=== PATIENT | female | born 1995 | race African-American/Black ===

== ENCOUNTER 2017-01-15 21:33 | Emergency (ER) | payer MEDICAID, OTHER ==
[~2017-01-15] VITALS: Ht 162.6 cm; Wt 74.8 kg
[~2017-01-15 21:33] MED LIST: BUPR75TA4 PO; CIPR-173 PO
[2017-01-15 22:02] VITALS: BP 116/90
[2017-01-15] MEDS ORDERED: HYDROmorphone HCL 2 MG/ML VL IV ONE (22:30)
[2017-01-15] MEDS ORDERED: ONDANSETRON HCL 4 MG/2 ML VIAL IV ONE (22:30)
[2017-01-15] MEDS ORDERED: methylPREDNISolone SOD SUCC 125 MG/2 ML VL ONE (23:10)
== END 2017-01-16 00:26 | disposition home or self-care (01) ==
LOC: EDBD 21:33 → ER 21:38
DX: S83.094A Other dislocation of right patella, initial encounter (principal); X50.9XXA Other and unspecified overexertion or strenuous movements or postures, initial encounter; Y93.89 Activity, other specified; Y99.0 Civilian activity done for income or pay; Y92.69 Other specified industrial and construction area as the place of occurrence of the external cause
CPT/HCPCS: 27560; 36415; 73562; 84702; 96374; 96375; 99285; J1170; J2405; J2930

== ENCOUNTER 2020-08-30 10:21 | Emergency (ER) | payer MEDICAID, OTHER ==
[~2020-08-30] VITALS: Ht 162.6 cm; Wt 85.7 kg
[2020-08-30 11:04] VITALS: BP 114/73
== END 2020-08-30 11:22 | disposition home or self-care (01) ==
LOC: ER 10:21
DX: S93.401A Sprain of unspecified ligament of right ankle, initial encounter (principal); W10.8XXA Fall (on) (from) other stairs and steps, initial encounter; Y93.89 Activity, other specified; Y92.89 Other specified places as the place of occurrence of the external cause; Y99.8 Other external cause status
CPT/HCPCS: 73610

== ENCOUNTER 2021-02-10 21:29 | Emergency (ER) | payer MEDICAID ==
[~2021-02-10] VITALS: Ht 170.2 cm; Wt 72.6 kg
[2021-02-10 21:34] VITALS: BP 126/84
== END 2021-02-11 01:05 | disposition left against medical advice (07) ==
LOC: EDBD 21:29 → ER 21:30
DX: M79.606 Pain in leg, unspecified (principal); Z53.21 Procedure and treatment not carried out due to patient leaving prior to being seen by health care provider

== ENCOUNTER 2023-10-08 02:24 | Emergency (ER) | payer MEDICAID, OTHER ==
[~2023-10-08] VITALS: Ht 162.6 cm; Wt 105.0 kg
[2023-10-08 07:28] VITALS: BP 143/88; PULSE 107; RESP 20; TEMP 98; O2SAT 98
[2023-10-08] MEDS ORDERED: ACETAMINOPHEN 500 MG TAB PO ONE (08:00)
[2023-10-08] MEDS ORDERED: IBUP-1456 PO (08:03)
[2023-10-08] MEDS ORDERED: METH-1182 PO (08:03)
== END 2023-10-08 08:22 | disposition home or self-care (01) ==
LOC: ER 02:24 → EDBD 02:24 → ER 08:20
DX: S29.011A Strain of muscle and tendon of front wall of thorax, initial encounter (principal); F32.9 Major depressive disorder, single episode, unspecified; Z79.899 Other long term (current) drug therapy; V43.52XA Car driver injured in collision with other type car in traffic accident, initial encounter; Y93.I9 Activity, other involving external motion; Y92.89 Other specified places as the place of occurrence of the external cause; Y99.8 Other external cause status
CPT/HCPCS: 71101; 93005